=== PATIENT | female | born 1985 | race Caucasian/White ===

== ENCOUNTER 2018-05-31 14:09 | Inpatient (IN) | payer BC ==
[2018-05-31] MEDS ORDERED: LIDOCAINE 1% 300 MG/30 ML SDV SC PRN (14:31)
[2018-05-31] MEDS ORDERED: OXYTOCIN/RINGERS LACTATE 1,000 ML IV PRN (14:31)
[2018-05-31] MEDS ORDERED: LR 1,000 ML IV PRN (14:31)
[2018-05-31] MEDS ORDERED: AMPICILLIN SODIUM 2 GM in NS 100 ML IV ONE (14:31)
[2018-05-31] MEDS ORDERED: IBUPROFEN 600 MG TAB PO PRN (14:31)
[2018-05-31] MEDS ORDERED: OLIVE OIL 118 ML BTL MISC PRN (14:31)
[2018-05-31] MEDS ORDERED: TERBUTALINE SULFATE 1 MG/ML VIAL IV PRN (14:31)
[2018-05-31] MEDS ORDERED: MISOPROSTOL 200 MCG TAB PR PRN (14:31)
[2018-05-31] MEDS ORDERED: EPSOM SALT 454 GM TP PRN (14:31)
[2018-05-31] MEDS ORDERED: AMPICILLIN SODIUM 1 GM in NS 100 ML IV SCH (14:45)
[2018-05-31] MEDS ORDERED: BUPIVACAINE 0.25% 30 ML SDV ONE (14:49)
[2018-05-31] MEDS ORDERED: fentaNYL 2MCG/ML/BUP 0.1% RTU 100 ML BAG EP ONE (14:49)
[2018-05-31] MEDS ORDERED: PHENYLEPHRINE HCL 100 MCG/ML SYR ONE (14:49)
[2018-05-31] MEDS ORDERED: fentaNYL 100 MCG/2 ML INJ ONE (14:50)
[2018-05-31] MEDS ORDERED: OXYTOCIN 10 UNIT/ML VIAL ONE (14:59)
[2018-05-31] MEDS ORDERED: MISOPROSTOL 200 MCG TAB ONE (14:59)
[2018-05-31] MEDS ORDERED: AMMONIA AROMATIC 1 EACH AMP IH ONE (14:59)
[2018-05-31] MEDS ORDERED: LIDOCAINE 1% 300 MG/30 ML SDV ONE (14:59)
[2018-05-31] MEDS ORDERED: OLIVE OIL 118 ML BTL ONE (15:01)
[2018-05-31] MEDS ORDERED: ONDANSETRON 4 MG/2 ML VIAL IVP PRN (15:49)
[2018-05-31] MEDS ORDERED: PHENYLEPHRINE HCL 100 MCG/ML SYR IVP PRN (15:49)
--- NOTE | 2018-05-31 15:54 | PREANESOB ---
Obstetric Pre-Anesthesia Info - General Info Proposed Procedure: Labor and delivery. : 2 Para: 1 EAMON: 06/01/18 Gestational Age: 39 week(s) and 6 day(s) - Info Status: Full Term Monitors: External FHR Baseline (bpm): 130 FHR Pattern: Reassuring - Labor Status Cervical Dilation per last OB SVE: 2 Indications for Labor Analgesia: Pain Control Labor Epidural: Proposed Anesthesia ROS: Prior labor epidural. Allergies/Adverse Reactions: Allergy/AdvReac Type Severity Reaction Status Date / Time Sulfa (Sulfonamide Allergy Verified 05/31/18 14:31 Antibiotics) Visit Medications: Generic Name Dose Route Start Last Admin Trade Name Freq PRN Reason Stop Dose Admin Ampicillin Sodium 1 gm/ Sodium 100 mls @ 200 mls/hr 05/31/18 14:45 Chloride IV 06/30/18 14:44 Q4H GERMAINE Protocol Lactated Ringer's 1,000 mls @ 0 mls/hr 05/31/18 14:31 Lr IV 06/01/18 14:30 PRN PRN SEE PROTOCOL CONDITIONS Protocol Per Protocol Oxytocin/Lactated Ringer's 1,000 mls @ 125 mls/hr 05/31/18 14:31 Pitocin 20 Units/Lr (Premix) IV PRN PRN Post bleeding Ibuprofen 600 mg 05/31/18 14:31 Motrin PO ONCE PRN post , pain Lidocaine HCl 300 mg 05/31/18 14:31 Lidocaine Hcl 1% SC 11/27/18 14:30 ONCE PRN episiotomy Magnesium Sulfate 454 gm 05/31/18 14:31 Epsom Salt TP 11/27/18 14:30 Q1H PRN perineal discomfort Misoprostol 800 - 1,000 mcg 05/31/18 14:31 Cytotec ID ONCE PRN Vaginal Atony/Bleeding [place] Oil 118 ml 05/31/18 14:31 Sweet Oil MISC 11/27/18 14:30 ONCE PRN perineal massage Terbutaline Sulfate 0.25 mg 05/31/18 14:31 Brethine IV 11/27/18 14:30 ONCE PRN Tachysystole Discontinued Medications Generic Name Dose Route Start Last Admin Trade Name Freq PRN Reason Stop Dose Admin Ammonia (Aromatic Spirit) Confirm 05/31/18 14:59 Ammonia Aromatic Administered 05/31/18 15:00 Dose 1 each IH .STK-MED ONE Bupivacaine HCl Confirm 05/31/18 14:49 Sensorcaine 0.25% Sdv Administered 05/31/18 14:50 Dose 30 ml .ROUTE .STK-MED ONE Fentanyl Confirm 05/31/18 14:50 Sublimaze Administered 05/31/18 14:51 Dose 100 mcg .ROUTE .STK-MED ONE Fentanyl/Bupivacaine HCl Confirm 05/31/18 14:49 Fentanyl/Bupivacaine/Ns 2 Mcg/Ml 0.1% (Premix Administered 05/31/18 14:50 Dose 100 ml EP .STK-MED ONE Ampicillin Sodium 2 gm/ Sodium 110 mls @ 220 mls/hr 05/31/18 14:31 05/31/18 15:01 Chloride IV 05/31/18 15:00 110 mls ONCE ONE Administration Protocol Lidocaine HCl Confirm 05/31/18 14:59 Lidocaine Hcl 1% Administered 05/31/18 15:00 Dose 300 mg .ROUTE .STK-MED ONE Misoprostol Confirm 05/31/18 14:59 Cytotec Administered 05/31/18 15:00 Dose 1,000 mcg .ROUTE .STK-MED ONE [place] Oil Confirm 05/31/18 15:01 Sweet Oil Administered 05/31/18 15:02 Dose 118 ml .ROUTE .STK-MED ONE Oxytocin Confirm 05/31/18 14:59 Pitocin Administered 05/31/18 15:00 Dose 40 unit .ROUTE .STK-MED ONE Phenylephrine HCl Confirm 05/31/18 14:49 Neosynephrine Administered 05/31/18 14:50 Dose 1,000 mcg .ROUTE .STK-MED ONE - Anesthesia History Response to Local Anesthetics: Normal Anesthesia & Operative History: Prob w/Prior Anesthesia (Prior epidural worked only on the left.) Family Anesthesia History: Negative - Social History Substance Use/Abuse: Denies - Vital Signs Blood Pressure: 111/65 Heart Rate: 85 Height/Weight (Nursing): Height 162.56 cm Weight 75.75 kg - Focused Exam Neck exam: FROM Mallampati Score: Class 1 Mouth exam: normal dental/mouth exam Pulmonary: no respiratory distress Cardiovascular: regular rate and rhythym - Plan Anesthetic Plan: CSE Consent Signed and on Chart: Yes Patient/Guardian Understands and Agrees to Plan: Yes Urgent/Emergent Case: Valdo valerio completed preop but documented later for safe timely pt care
--- NOTE | 2018-05-31 15:56 | POSTANESTH ---
Post Anesthetic Evaluation Cardiovascular Status: Normal, Stable, Similar to Pre-Op Cond Respiratory Status: Normal, Stable, Similar to Pre-op Cond. Level of Consciousness/Mental Status: Can Participate in Eval, Alert and Oriented Pain Control: Adequate, Prn Tx Ordered Nausea/Vomiting Control: Adequate, Prn Tx Ordered Complications Possibly Related to Anesthesia: None Noted (BP stable after phenylephrine.)
[2018-05-31] MEDS ORDERED: fentaNYL 2MCG/ML/BUP 0.1% RTU 100 ML EP SCH (16:00)
[2018-05-31] MEDS ORDERED: LR 500 ML IV SCH (16:00)
[2018-05-31 16:36] LABS: PLATELET COUNT 184 10^3/uL (150-400)
--- NOTE | 2018-05-31 17:14 | GHP ---
DATE OF ADMISSION: 05/31/2018 HISTORY UPON ADMISSION: The patient is a 32-year-old G2, P1, at 39 weeks and 6 days with an estimate d due date of 06/01 by LMP and 8 week ultrasound. The patient presents in active labor after spontane ous rupture of membranes. The patient had a large gush of clear fluid at 1250 today and spontaneous onset of increased contractions shortly thereafter. Patient continues to leak fluid clear fluid and is having painful contractions every 4 minutes upon admission and the patient requests an epidural an esthesia. The patient is GBS positive and has received her first dose of ampicillin. Dr. Radha cano placed an epidural, and the patient is feeling significantly more comfortable. Patient has been darby cano having good movement and no bleeding. HISTORY: The patient has been with [facility] since 10 weeks gestation. The pat ient has not had complications with the until she was noted at 33 weeks to a size less than dates. She had an ultrasound performed, which showed normal fluid, and a growth ultrasound revealed the baby was 43rd percentile and size equals dates. LABS: Include maternal blood type of A positive with negative antibody screen. RPR nonreac tive. Rubella immune. Hepatitis B surface antigen negative. HIV negative. Initial hematocrit 40% with platelets 250,000. Mid hematocrit dropped to 35% but was stable at 35 weeks at 36%. Patient was taking low dose iron. Her standard panel was negative. Varicella immune and parvo immun e. TSH was normal. Her urinalysis and culture were negative. Pap smear normal with HPV negative. Gonorrhea and chlamydia negative. MSAFP was negative, and Verifi testing was normal. 1-hour Glucola was normal. GBS culture was positive. PAST MEDICAL HISTORY: Migraines with aura, history of genital warts in 2005. PAST SURGICAL HISTORY: Negative. The patient had an epidural with her first delivery, and it was on e-sided. PAST OBSTETRIC HISTORY: In March 2015, a male delivered at 7 pounds 4 ounces after only 45 minutes of pushing after an induction for postdates. The patient was delivered in [place], and the epidural w ith that delivery was only one-sided pain relief. ALLERGIES: Sulfa, causing a rash. CURRENT MEDICATIONS: Only vitamins with DHA and iron supplement. SOCIAL HISTORY: The patient is and is here with her , Brian, and they live with their son. 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 The patient is a non smoker. No alcohol or drug use. The patient reports social alcohol prior to . FAMILY HISTORY: With a stroke history on her mother's side as well as diabetes and thyroid problems. PHYSICAL EXAMINATION: GENERAL: Upon presentation the patient is a well-developed, well-nourished wh ite female in moderate distress with labor. VITAL SIGNS: Blood pressure on admission 111/65. Patie nt is afebrile. heart tones initially showed a baseline in the 130s with moderate variability and accelerations. No decelerations noted. After the placement of the epidural, then the baseline h as dropped to 110s with marked variability, but this was transient with blood pressure changes and pastor s improved back to a baseline of 130. Accelerations are noted again. Contractions every 4-5 minutes . CERVICAL: Reveals changed to 4 cm, 100% effaced at 0 station. Abundant clear fluid. EXTREMITIES : Nontender and no edema. ASSESSMENT: Intrauterine at 39 weeks and 6 days, spontaneous rupture of membranes and spon taneous onset of labor. GBS positive and has received first dose of ampicillin. Patient now comfort able with epidural. History of migraines. PLAN: I expect a vaginal delivery. Will watch labor progress, but if patient is able to get the sec ond dose that will be in 4 hours. /[id number]/MODL
--- NOTE | 2018-05-31 17:16 | OBPROG ---
Labor Progress Note Assessment/Plan: Assessment: IUP at 39w6d SROM, SOOC +GBS, only one dose amp Plan: now complete and +1 station, will begin pushing soon 05/31/18 17:13 Subjective/Intrapartum Course: 05/31/18 17:14 pt feeling some pressure with ctxns. tolerable. happy with rapid progress Objective: 05/31/18 14:45 Patient ABO/Rh O POSITIVE 05/31/18 14:45 Temp Pulse Resp BP Pulse Ox 85 111/65 05/31/18 15:54 05/31/18 15:54 - SVE Dilation (cm): 10 Effacement (%): 100 Station: +1 Membranes: SROM Amniotic Fluid Color: Clear Dilation Complete Date: 05/31/18 Dilation Complete Time: 16:35 - Contraction Pattern Assessment Current Contraction Pattern: Regular (q 3 min) - FHR Assessment Johns FHR (bpm): 130 FHR Pattern Variability: Moderate FHR Category: 2 (variables occas with ctxns) - AP Antepartum Course: 05/31/18 17:17 migraines with aura, growth at 33 wks due to s<d and EFW 43 % Oxytocin Orders Assessment - Pre-Induction/Augmentation Assessment Gestational Age: 39 week(s) and 6 day(s) ICD10 Worksheet Patient Problems: Problems Problem Status Onset Normal labor Acute
[2018-05-31] MEDS: IBUPROFEN 600 MG TAB PO SCH (17:57)
--- NOTE | 2018-05-31 18:00 | OBDEL ---
Info Type: Vaginal Presentation at Delivery: Vertex L&D Analgesia/Anesthesia Type: Epidural GBS+: Yes (only one dose rec'd) Antibiotic Used for + GBS: Ampicillin Intrapartum Medications: Discontinued Medications Generic Name Dose Route Start Last Admin Trade Name Prashantq PRN Reason Stop Dose Admin Ampicillin Sodium 2 gm/ Sodium 110 mls @ 220 mls/hr 05/31/18 14:31 05/31/18 15:01 Chloride IV 05/31/18 15:00 110 mls ONCE ONE Administration Protocol - Hospital Course Intrapartum: 05/31/18 17:14 pt feeling some pressure with ctxns. tolerable. happy with rapid progress Indications for Delivery: Spontaneous Labor, SROM Vaginal Delivery - Delivery Provider Delivery Physician/CNM: Christina Jaquez - Labor and Delivery Onset of Contractions Date: 05/31/18 Onset of Contractions Time: 12:50 Onset of Contractions Type: Spontaneous Rupture of Membranes Date: 05/31/18 Rupture of Membranes Time: 12:50 Rupture of Membranes Type: Spontaneous Amniotic Fluid Color: Clear (clear throughout labor with aftercoming mec at delivery) Dilation Complete Date: 05/31/18 Dilation Complete Time: 16:35 Placenta Delivery Date: 05/31/18 Placenta Delivery Time: 17:39 Total Hours of Labor: 4 Laceration: Other (Specify) (none) Vaginal Sponge Count Correct: Yes Vaginal Needle Count Correct: Yes Vaginal Sweep Performed: Yes EBL: 300 Delivery Events: Other (Specify) (body cord x 1 - delivered through) Delivery Comment: didn't begin pushing right away with complete --pushed approx 10 min Data EAMON: 06/01/18 Gestational Age: 39 week(s) and 6 day(s) Johns Delivery Date: 05/31/18 Delivery Time: 17:28 Sex of Infant: Female [place] Weight (gm): 0 g Score (1 Min): 7 Score (5 Min): 9 ICD10 Worksheet Patient Problems: Problems Problem Status Onset (spontaneous vaginal delivery) Acute
[2018-05-31] MEDS: ACETAMINOPHEN 325 MG TAB PO SCH (19:04)
[2018-05-31] MEDS ORDERED: MEASLES,MUMPS&RUBELLA VACC/PF 0.5 ML VIAL SC ONE (20:35)
[2018-06-01] MEDS: IBUPROFEN 600 MG TAB PO SCH ×4 (00:14→19:43)
[2018-06-01] MEDS: ACETAMINOPHEN 325 MG TAB PO SCH ×2 (00:14→09:46)
[2018-06-01] MEDS ORDERED: SUMAtriptan 25 MG TAB PO ONE (17:11)
--- NOTE | 2018-06-01 17:11 | OBPP ---
Progress Note Assessment/Plan: Assessment:32 G2 now P2 PPD #1 s/p uncomplicated . Doing well, was planning dc home today (as pt seen early this afternoon), but then migraine with aura started. Plan: Imitrex ordered - recommended as first line for migraine in setting of , considered L3 per [place]. Anticipate dc home tomorrow. Bella Edward MD, FACOG [facility] 06/01/18 19:04 Subjective/ Course: Delayed entry - pt seen around 1400 (due to acuity of patients in L&D). Doing well, ambulating and voiding without difficulty. Mod lochia. going well. Would like to go home this afternoon after 24 hours after delivery (peds OK with dc of baby after 24 hours of life) 06/01/18 19:09 Objective: 05/31/18 14:45 Patient ABO/Rh O POSITIVE 05/31/18 14:45 Temp Pulse Resp BP Pulse Ox 36.1 C 71 16 110/70 96 06/01/18 00:15 06/01/18 00:15 06/01/18 00:15 06/01/18 00:15 06/01/18 00:15 gen - pleasant, NAD, AOx3 HEENT - normocephalic, PERRL skin - warm, dry CV - RRR chest - CTAB abd - soft, fundus firm u-2, + BS ext - trace edema, no calf tenderness, neg Kitty's sign Uterine Position/Fundal Height: Umbilicus -2 Uterine Tone: Firm
[2018-06-02] MEDS: ACETAMINOPHEN 325 MG TAB PO SCH ×2 (04:18→07:43)
[2018-06-02 08:22] VITALS: BP 120/79
[2018-06-02] MEDS: IBUPROFEN 600 MG TAB PO SCH (08:29)
--- NOTE | 2018-06-02 11:56 | OBPP ---
Progress Note Assessment/Plan: Assessment: PPD2 s/p - doing well. Migraine last night, Imitrex x 1 worked well and good night's sleep. Ready for home today - f/u mood check 4 wks, Routine PP 6. Imitrex Rx. Rh pos, Rubella immune, GBS pos. JM Subjective/ Course: Delayed entry - pt seen around 1400 (due to acuity of patients in L&D). Doing well, ambulating and voiding without difficulty. Mod lochia. going well. Would like to go home this afternoon after 24 hours after delivery (peds OK with dc of baby after 24 hours of life) 06/01/18 19:09 06/02/18 11:54 Feeling much better - no more DENNISON, would like some Imitrex for home. Objective: 05/31/18 14:45 Patient ABO/Rh O POSITIVE 05/31/18 14:45 Temp Pulse Resp BP Pulse Ox 36.3 C 80 16 120/79 99 06/02/18 08:21 06/02/18 08:21 06/02/18 08:21 06/02/18 08:21 06/02/18 08:21 Uterine Position/Fundal Height: At Umbilicus Uterine Tone: Firm
--- NOTE | 2018-06-02 11:56 | OBGCSDC ---
General Delivery Information - General Info : 2 Para: 2 Abortions: 0 Type: Vaginal L&D Analgesia/Anesthesia Type: Epidural Admission Date: 05/31/18 Labs: Patient ABO/Rh O POSITIVE 05/31/18 14:45 Hct 38.2 % (38.0-47.0) 05/31/18 14:45 - Hospital Course Antepartum: 05/31/18 17:17 migraines with aura, growth at 33 wks due to s<d and EFW 43 % Intrapartum: 05/31/18 17:14 pt feeling some pressure with ctxns. tolerable. happy with rapid progress : Delayed entry - pt seen around 1400 (due to acuity of patients in L&D). Doing well, ambulating and voiding without difficulty. Mod lochia. going well. Would like to go home this afternoon after 24 hours after delivery (peds OK with dc of baby after 24 hours of life) 06/01/18 19:09 06/02/18 11:54 Feeling much better - no more DENNISON, would like some Imitrex for home. Vaginal - Delivery Provider Delivery Physician/CNM: Christina Jaquez - Diagnosis Labor: Spontaneous Rupture of Membranes Type: Spontaneous Amniotic Fluid Color: Clear (clear throughout labor with aftercoming mec at delivery) Laceration: Other (Specify) (none) Delivery Events: Other (Specify) (body cord x 1 - delivered through) - Delivery EBL: 300 [place] Data EAMON: 06/01/18 Gestational Age: 40 week(s) and 1 day(s) Johns Delivery Date: 05/31/18 Delivery Time: 17:28 Sex of : Female [place] Weight (gm): 0 g Score (1 Min): 7 Score (5 Min): 9 Discharge Information - Discharge Information Prescriptions: SUMAtriptan [Imitrex 25 MG (*)] 25 mg PO Q2H #20 tab Condition: Good Instruction/Follow Up: See Instruction Sheet, Four Weeks, Six Weeks
== END 2018-06-02 11:20 | disposition home or self-care (01) | DRG 807 ==
LOC: FLD 14:09 → FOB 20:32
PROVIDERS: ADMIT Obstetrics & Gynecology; ATTEND Obstetrics & Gynecology
PROC: 10E0XZZ Delivery of Products of Conception, External Approach (ICD-10-PCS; principal; 2018-05-31)
DX: O99.820 Streptococcus B carrier state complicating pregnancy (principal); Z37.0 Single live birth; Z3A.39 39 weeks gestation of pregnancy; O69.82X0 Labor and delivery complicated by other cord entanglement, without compression, not applicable or unspecified
CPT/HCPCS: J0290; J2370; J2590; J3010